=== PATIENT | female | born 1980 | race Caucasian/White ===

== ENCOUNTER → 2023-11-07 11:47 | Outpatient (REF) | payer BC, SELFPAY | LOC: PAVMRI 11:47 | PROVIDERS: ATTENDING PHYSICIAN Specialist | DX: C72.0 Malignant neoplasm of spinal cord (principal) | CPT/HCPCS: 70553; 72156; A9575 ==

== ENCOUNTER → 2023-11-11 10:59 | Outpatient (REF) | payer BC, SELFPAY | LOC: PAVMRI 10:59 | PROVIDERS: ATTENDING PHYSICIAN Specialist | DX: C72.0 Malignant neoplasm of spinal cord (principal) | CPT/HCPCS: 72157; 72158; A9575 ==

== ENCOUNTER → 2024-01-31 13:44 | Outpatient (REF) | payer BC, SELFPAY | LOC: PAVMRI 13:44 | PROVIDERS: ATTENDING PHYSICIAN Specialist | DX: C72.0 Malignant neoplasm of spinal cord (principal) | CPT/HCPCS: 72157; A9575 ==